=== PATIENT | female | born 1970 | race Caucasian/White ===

== ENCOUNTER 2025-03-20 14:18 | Inpatient (IN) | payer MEDICAID ==
[~2025-03-20] VITALS: Ht 152.4 cm; Wt 49.1 kg
[2025-03-20] MEDS ORDERED: magnesium hydroxide 30ml (MOM) UD suspension PO PRN (17:05)
[2025-03-20] MEDS ORDERED: glucagon, human recombinant 1mg kit SUBCUT PRN (17:05)
[2025-03-20] MEDS ORDERED: dextrose 50%-water 50ml dispensing syringe IV PRN ×2 (17:05)
[2025-03-20] MEDS ORDERED: morphine 4 MG/ML inj SYRINge IV PRN (17:05)
[2025-03-20] MEDS ORDERED: DEXTROSE 15 GM of carb/4 tabs (each vial/BOTTLE has 4 tablets) PO PRN ×2 (17:05)
[2025-03-20] MEDS: LidoCAINE 2% Topical Jelly 11mL syringe (UROJET) TOP ONE (17:30)
--- NOTE | 2025-03-20 17:43 | HISTORY AND PHYSICAL ---
History of Present Illness History of present illness 54-year-old female who was admitted to [facility] on the 19 March 2025 where she was seen for fatigue and the patient was diagnosed with a urinary tract infection. She was seen initially by an outlying physician who prescribed antibiotics but she could not go to the pharmacy to pick a prescription because of transportation issues. The patient was notable for hypotension and tachycardia at [facility]. She was also diagnosed with a urinary tract infection and was initially treated with ceftriaxone that was changed to meropenem today after consulting with Dr. Stephan nettles. She received about 5 L of crystalloid for fluid resuscitation and prior to transferred to [facility], she received boluses of albumin. New line the patient arrived here with a normal blood pressure i.e. 139/83 and the normal blood pressure has sustained itself. She was on lethargic upon arrival because he had received Versed and fentanyl prior to transfer. When I saw with the patient, she was complaining of thirst. He had no compl aints of shortness of breath, chest pain, chest heaviness, cough, phlegm, wheezing, nausea vomiting, abdominal pain, increased urinary frequency no dysuria. The patient has a history of neurogenic bladder and she usually performs self catheterization at home. Expected to stay > 48 hours Yes Reason for Visit: Transferred from [facility] for septic shock and hyperglycemia Chief complaint Septic shock secondary to UTI Source: Patient, Family, Medical Records Past Medical History Past medical history Diabetes mellitus, amphetamine use, CHF, chronic pain syndrome and on [place] at home. Past Surgical History Surgical history Reports right ankle surgery but does not recall why and also does not recall where she had two right hip surgeries, patient currently mumbling words that are difficult to understand. Past Family History Family history Unknown, patient mumbling words that are difficult to understand. Past Social History Smoke: 1 pack per day ALCOHOL: none Drugs: Marijuana (Methamphetamines), Other Lives: with Family () Review of Systems Review of Systems Review of Systems As in history of present illness and past medical history. Patient unable to give a review of systems given the fact that she is just mumbling words. Exam Physical exam HEENT examination: N/C/AT, PERRLA, EOMI, sclerae edema, edentulous Neck: Supple with no jugular venous distention and lymphadenopathy. Chest: Symmetric expansion bilaterally Pulmonary: Clear to auscultation bilaterally with no wheezing no rales rhonchi. Cardiac: Sinus rhythm Abdomen: Nondistended, normoactive bowel sounds soft nontender no organomegaly. Extremities: Right groin central line in place, no cyanosis no clubbing no edema. Neurological examination: Grossly nonfocal. Assessment/Plan Plan Sepsis with UTI Septic shock: Head required norepinephrine that was weaned off after successful fluid resuscitation at [facility] Uncontrolled diabetes mellitus Substance abuse with methamphetamines Plan: Continue antibiotics with the meropenem 1 g IV q.8h as per recommendations from Dr. Nettles Consult Dr. Nettles Use high-dose sliding scale a.c. and HS Patient can be on 60 g of carbohydrate diet. Code status: Full code Sedation/analgesia: P.r.n. Tylenol for pain control IVs: Right groin central line and no peripheral IVs Prophylaxis: Protonix and heparin Overall prognosis: Guarded but improved Critical care time in excess of 35 minutes. VTE VTE Risk Score VTE Risk Score Reference Ranges: Score 0-1 = Low Risk (Aggressive mobilization; early ambulation; no VTE prophylaxis required) Score 2: Moderate Risk (Intermittent/Pneumatic Compression Device OR Lovenox/Heparin/Coumadin) Score 3-4: High Risk (Intermittent/Pneumatic Compression Device AND Lovenox/Heparin/Coumadin) Score > or = 5: Highest Risk (Intermittent/Pneumatic Compression Device AND Lovenox/Heparin/Coumadin) ALECIA CUNHA MD Mar 20, 2025 17:43
[2025-03-20 17:57] VITALS: RESP 29
[2025-03-20 19:00] VITALS: BP 142/88; PULSE 109; RESP 16; O2SAT 95
[2025-03-20 20:00] VITALS: BP 167/106; PULSE 115; RESP 19; RESP 20; O2SAT 95
[2025-03-20 20:33] LABS: MEAN PLATELET VOLUME 8.5 FL (7.4-10.4); RED CELL DISTRIBUTION WIDTH 14.3 % (11.5-14.5)
[2025-03-20 21:00] VITALS: BP 147/93; PULSE 108; RESP 25; O2SAT 97
[2025-03-20 21:09] LABS: CREATININE 1.42 MG/DL (0.40-0.90); PHOSPHORUS 2.6 MG/DL (2.3-4.5); TOTAL CARBON DIOXIDE 20.4 MMOL/L (24-32); eCRCL 33 ML/MIN; eGFR 39 ML/MIN
[2025-03-20] MEDS: INSULIN LISPRO 100 UNIT/ML INSULN.PEN MULTI-DOSE SQ SCH (21:27)
[2025-03-20 21:54] LABS: LEUKOCYTE ESTERASE ,URINE SMALL (Neg); NITRITES, URINE NEGATIVE (Neg); OCCULT BLOOD,URINE SMALL (Neg)
[2025-03-20 21:59] LABS: UA COLLECTION TYPE FOLEY CATH
[2025-03-20 22:00] VITALS: BP 139/87; PULSE 110; RESP 25; O2SAT 95
[2025-03-20 22:00] LABS: SQUAMOUS EPITHELIAL CELL,UR FEW /LPF (FEW)
[2025-03-20 23:00] VITALS: BP 135/88; PULSE 101; RESP 26; O2SAT 94
[2025-03-20] MEDS: heparin, porcine 5000 units/ml vial SQ SCH (23:41)
[2025-03-20] MEDS: MEROPENEM 1GM/NACL 50ML IVPB 50 ML IV SCH (23:46)
[2025-03-21] VITALS (22 sets, daily range): BP systolic 108–170; BP diastolic 46–102; PULSE 80–109; RESP 11–26; TEMP 99; O2SAT 92–100
[2025-03-21 03:36] LABS: MEAN PLATELET VOLUME 8.9 FL (7.4-10.4); RED CELL DISTRIBUTION WIDTH 14.5 % (11.5-14.5)
[2025-03-21 03:54] LABS: CREATININE 1.36 MG/DL (0.40-0.90); PHOSPHORUS 2.8 MG/DL (2.3-4.5); TOTAL CARBON DIOXIDE 22.3 MMOL/L (24-32); eCRCL 34 ML/MIN; eGFR 41 ML/MIN
[2025-03-21] MEDS ORDERED: pantoprazole 40MG/NS 100ML BAG 100 ML IV SCH (08:00)
[2025-03-21] MEDS ORDERED: LANTUS SQ (10:48)
[2025-03-21] MEDS ORDERED: DAPA5TAB PO (10:48)
[2025-03-21] MEDS ORDERED: BUDE10.2 PO (10:48)
[2025-03-21] MEDS ORDERED: INSU100C4 SQ (10:48)
[2025-03-21] MEDS ORDERED: TIRZ2.5P SQ (10:48)
[2025-03-21] MEDS ORDERED: GABA100C PO (10:48)
[2025-03-21] MEDS ORDERED: potassium Cl 20 mEq SR tablet PO PRN (11:00)
[2025-03-21] MEDS ORDERED: potassium Cl 40MEQ/1/2NS 520ml 520 ML IV PRN (11:00)
[2025-03-21] MEDS ORDERED: magnesium sulf-water 2g/50mL 50 ML IV PRN (11:00)
[2025-03-21] MEDS ORDERED: magnesium Cl slow-release 64mg tablet PO PRN (11:00)
[2025-03-21] MEDS ORDERED: magnesium sulf-water 4G/100mL 100 ML IV PRN (11:00)
[2025-03-21] MEDS: potassium Cl 20 mEq SR tablet PO PRN (12:27)
[2025-03-21] MEDS: ondansetron/PF 4mg/2ml inj IV PRN (12:31)
[2025-03-21] MEDS: INSULIN LISPRO 100 UNIT/ML INSULN.PEN MULTI-DOSE SQ SCH (14:04)
--- NOTE | 2025-03-21 16:21 | PROGRESS NOTE- Residence ---
Progress Note - Resident Providers to CC Resident Creating Document: CIRILO CUENCA CC: ALECIA CUNHA MD ~ Antibiotic Timeout Antibiotic Ordered?: Yes Subjective Patient was seen and examined at bedside today. She reports to be feeling better compared to yesterday. She reports that she was placed a Guadalupe catheter weeks ago, she is unsure on duration. Per nursing staff, patient apparently has history of neurogenic bladder and she self caths at home. She has also been having watery diarrhea Objective Vital Signs Date Time Temp Pulse Resp B/P (MAP) Pulse Ox O2 Delivery O2 Flow Rate FiO2 03/21/25 11:00 103 18 149/93 (111) 99 Nasal Cannula 1.0 03/21/25 09:00 100.0 Result Diagram: 03/21/25 0240 03/21/25 0240 General: awake, alert oriented to place, time, and person HEENT: No pallor present, no icterus, moist mucous membranes Neck: No masses and tenderness Resp: Unlabored. Lungs clear to auscultation bilaterally. Chest: Normal expansion Cardiovascular: Regular Rate and rhythm, normal S1 and S2 without murmur, rub or gallop Abdomen: Soft and nontender, no organomegaly, no guarding and rigidity, bowel sounds present Neuro: No focal weakness in the upper and lower limb muscles, power of the muscles 5/5 bilateral upper and lower extremities, normal reflexes bilaterally. Cranial nerves intact Extremities: No cyanosis,clubbing or edema Skin: Warm and Dry. No lesions Psych: Normal affect and mood. Cooperative with the care Plan Plan CAUTI Septic shock 2/2 above, resolving Required norepinephrine that was weaned off after successful fluid resuscitation at [facility] Blood pressure is now stable Preliminary cultures are negative WBC is 20 today, 21 yesterday Continue antibiotics with the meropenem 1g IV q.8h as per recommendations from Dr. Bates, day 2 Watery diarrhea Pending C diff serology Possibly chronic per patient Uncontrolled diabetes mellitus A1C >12 Was recently started on Mounjaro Uses insulin as well Will start Lispro 3U, Lantus 10U, supplemental Carb control diet BG goal: 140-180 Substance abuse with methamphetamines Substance abuse navigator consult HTN Start Lisinopril 20mg daily Code status: Full code Sedation/analgesia: P.r.n. Tylenol for pain control IVs: Right groin central line and no peripheral IVs Prophylaxis: Protonix and heparin Prognosis: Guarded Disposition: Okay to transfer to floors Cirilo Andre MD Internal Medicine Resident PGY-2 Date of Service: Mar 21, 2025 Billing Provider: ALECIA CUNHA MD, LEONARDO LUIS Mar 21, 2025 16:21
[2025-03-21 18:01] LABS: C DIFFICILE TOXINS A&B NEGATIVE (Neg)
[2025-03-21 18:02] LABS: C DIFF ANTIGEN NEGATIVE (NEGATIVE); C DIFF SPECIMEN=DIARRHEA? ACCEPTABLE
[2025-03-21] MEDS: MEROPENEM 1GM/NACL 50ML IVPB 50 ML IV SCH (19:11)
--- NOTE | 2025-03-21 20:35 | CONSULTATION REPORT - RESIDENT ---
Consult Providers to CC Resident Creating Document: LISET PALMER RES History of Present Illness Reason for Admit\Complaint: UTI/shock History of Present Illness This is a 54-year-old female with past medical history of diabetes, amphetamine use was admitted [facility] where she was diagnosed with a UTI. She denies chest pain shortness of breaths nausea vomiting. Patient is a poor historian, chief G-tube remember anything much but she was sick and had dizzines and lightheadness Patient was mumbling and it was very difficult to obtain history from the patient. She denies chest pain shortness of breaths nausea vomiting and reports diarrhea 5-6 episodes in a day watery. Below is the history which I got from ICU notes The patient was notable for hypotension and tachycardia at [facility]. She was also diagnosed with a urinary tract infection and was initially treated with ceftriaxone that was changed to meropenem today after consulting with Dr. Stephan nettles. She received about 5 L of crystalloid for fluid resuscitation and prior to transferred to [facility], she received boluses of albumin. New line the patient arrived here with a normal blood pressure i.e. 139/83 and the normal blood pressure has sustained itself. She was on lethargic upon arrival because he had received Versed and fentanyl prior to transfer. When I saw with the patient, she was complaining of thirst. He had no complaints of shortness of breath, chest pain, chest heaviness, cough, phlegm, wheezing, nausea vomiting, abdominal pain, increased urinary frequency no dysuria. The patient has a history of neurogenic bladder and she usually performs self catheterization at home. Allergies: Coded Allergies: Penicillins (Unverified Allergy, Unknown, 03/20/25) aspirin (Unverified Allergy, Unknown, 03/20/25) Home Medications Home Medications Active Reported Lantus* (Insulin Glargine) 100 Unit/1 Ml Vial 20 Units SQ HS pt ran out med and has not using for a while Novolog (Insulin Aspart) 100 Unit/Ml Cartridge 1 Unit SQ TIDWM PRN Symbicort 160-4.5 Mcg Inhaler (Budesonide/Formoterol Fumarate) 160 Mcg-4.5 Mcg/Actuation Hfa.aer.ad 2 Puffs PO BID Neurontin (Gabapentin) 100 Mg Capsule 1 Cap PO DAILY Mounjaro (Tirzepatide) 2.5 Mg/0.5 Ml Pen.injctr 2.5 Mg SQ MONDAY Farxiga (Dapagliflozin Propanediol) 5 Mg Tablet 1 Tab PO DAILY new med, pt states she has not started yet Past Medical History Past Medical History Diabetes mellitus, amphetamine use, CHF, chronic pain syndrome and on [place] at home. Past Surgical History Surgical History Comment Reports right ankle surgery but does not recall why and also does not recall where she had two right hip surgeries, patient currently mumbling words that are difficult to understand Past Social History Social History Comment Could not be obtained as patient was mumbling she just told smoked ciggrates ROS ROS all reviewed and negative except for findings mentioned in HPI Exam Vitals: Vital Signs Date Time Temp Pulse Resp B/P (MAP) Pulse Ox O2 Delivery O2 Flow Rate FiO2 03/21/25 20:00 98.6 96 26 137/93 (108) 97 Room Air 03/21/25 19:00 1.0 General: HEENT examination: N/C/AT, PERRLA, EOMI, sclerae edema, edentulous Neck: Supple with no jugular venous distention and lymphadenopathy. Chest: Symmetric expansion bilaterally Pulmonary: Clear to auscultation bilaterally with no wheezing no rales rhonchi. Cardiac: Sinus rhythm Abdomen: Nondistended, normoactive bowel sounds soft nontender no organomegaly. Extremities: Right groin central line in place, no cyanosis no clubbing no edema. Neurological examination: Grossly nonfocal. Diagnostic Data Last Recorded Lab Results: 03/21/25 0240 03/21/25 0240 Additional Plan Plan CAUTI Septic shock 2/2 above, resolving Required norepinephrine that was weaned off after successful fluid resuscitation at [facility] Blood pressure is now stable Preliminary cultures are negative WBC is 20 today, 21 yesterday Continue antibiotics with the meropenem 1g IV q.8h as per recommendations from Dr. Nettles, day 2 Watery diarrhea Pending C diff serology Possibly chronic per patient Uncontrolled diabetes mellitus A1C >12 Was recently started on Mounjaro Uses insulin as well Will start Lispro 3U, Lantus 10U, supplemental Carb control diet BG goal: 140-180 Substance abuse with methamphetamines Substance abuse navigator consult HTN Continue Lisinopril 20mg daily Code status: Full code Sedation/analgesia: P.r.n. Tylenol for pain control IVs: Right groin central line and no peripheral IVs Prophylaxis: Protonix and heparin Prognosis: Guarded Disposition: Patient is transfering to floors from ICU , will continue Date of Service: Mar 21, 2025 Billing Provider: BENEDICT TREJO MD, SANJAY, RES Mar 21, 2025 20:35
[2025-03-21] MEDS: insulin glargine (Lantus) pen - multi-dose SQ SCH (22:37)
[2025-03-21] MEDS: insulin glargine (Lantus) pen - multi-dose SQ ONE (23:03)
[2025-03-22 05:00] VITALS: BP 132/78; PULSE 101; RESP 18; TEMP 99.5; O2SAT 93
[2025-03-22 05:57] LABS: MEAN PLATELET VOLUME 8.9 FL (7.4-10.4); RED CELL DISTRIBUTION WIDTH 14.7 % (11.5-14.5)
[2025-03-22 06:03] LABS: CREATININE 1.17 MG/DL (0.40-0.90); PHOSPHORUS 1.4 MG/DL (2.3-4.5); TOTAL CARBON DIOXIDE 22.4 MMOL/L (24-32); eCRCL 40 ML/MIN; eGFR 48 ML/MIN
[2025-03-22 06:32] VITALS: RESP 18; O2SAT 93
[2025-03-22 06:48] LABS: BANDS% (MANUAL) 3.0 % (0-10); EOSINOPHILS % (MANUAL) 3.0 % (0-6); LYMPHOCYTES % (MANUAL) 15.0 % (21-51); METAMYLEOCYTES% (MANUAL) 1.0 % (0-0); MONOCYTES % (MANUAL) 2.0 % (2-12); NEUTROPHILS % (MANUAL) 76.0 % (42-75); PLATELET ESTIMATE NORMAL
[2025-03-22] MEDS: K and/or MAG REPLACEMENT MC SCH (07:51)
[2025-03-22 10:00] VITALS: BP 134/79; PULSE 93; RESP 20; TEMP 100.2; O2SAT 95
[2025-03-22] MEDS: loperamide 2mg capsule PO ONE (14:01)
[2025-03-22] MEDS: normal saline 1000ml 1,000 ML IV SCH ×2 (15:50→21:05)
--- NOTE | 2025-03-22 16:15 | RADIOLOGY REPORT ---
CHEST RADIOGRAPH Indication: monitor changes Technique: DI CHEST,SINGLE VIEW Comparison: None FINDINGS: 1 The cardiac silhouette is unremarkable. The lungs demonstrate right hilar opacification. The pulmonary vasculature is unremarkable. There is no pleural effusion. There is no pneumothorax. IMPRESSION: Right whole hilar airspace opacification. Follow-up to resolution to exclude underlying hilar lesion/mass.
[2025-03-22] MEDS: VANCOmycin 1250MG/NS 250ml Bag 250 ML IV ONE (17:06)
[2025-03-22 18:00] VITALS: BP 133/82; PULSE 85; RESP 20; TEMP 97.2; O2SAT 96
[2025-03-22] MEDS: morphine 4 MG/ML inj SYRINge IV PRN (18:44)
[2025-03-22 20:00] VITALS: RESP 20; O2SAT 96
--- NOTE | 2025-03-22 20:07 | PROGRESS NOTE- Residence ---
Progress Note - Resident Providers to CC Resident Creating Document: LISET PALMER RES CC: BENEDICT TREJO MD ~ Antibiotic Timeout Antibiotic Ordered?: Yes Subjective Patient was seen and examined at bedside she said, that she is feeling very better reports that her diarrheal episodes are improving. Denies abdominal pain, chest pain or difficulty in breathing. She also reports that she has neuropathy in feets No nausea vomiting Objective Vital Signs Date Time Temp Pulse Resp B/P (MAP) Pulse Ox O2 Delivery O2 Flow Rate FiO2 03/22/25 10:00 100.2 93 20 134/79 (97) 95 Room Air 03/21/25 20:00 1.0 Result Diagram: 03/22/2542203/22/25422 General: awake, alert oriented to place, time, and person HEENT: No pallor present, no icterus, moist mucous membranes Neck: No masses and tenderness Resp: Unlabored. Lungs clear to auscultation bilaterally. Chest: Normal expansion Cardiovascular: Regular Rate and rhythm, normal S1 and S2 without murmur, rub or gallop Abdomen: Soft and nontender, no organomegaly, no guarding and rigidity, bowel sounds present Neuro: No focal weakness in the upper and lower limb muscles, power of the muscles 5/5 bilateral upper and lower extremities, normal reflexes bilaterally.Cranial nerves intact Extremities: No cyanosis,clubbing or edema Skin: Warm and Dry. No lesions Psych: Normal affect and mood. Cooperative with the care Plan Plan This is a 54-year-old female with known history of diabetes mellitus admitted for septic shock, UTI management and treatment. CAUTI Septic shock 2/2 above, resolving Required norepinephrine that was weaned off after successful fluid resuscitation at [facility] Blood pressure is now stable Preliminary blood culture positive for Gram-positive coci, repeated blood cultures today Awaiting repeat lactic acid WBC is trending downward Continue antibiotics with the meropenem 1g IV q.8h as per recommendations from Dr. Bates, day 2 Watery diarrhea C diff negative In view of diarrhea started patient on loperamide. In view of the started patient on NS 50 mL/hour Diabetes Mellitus A1C >12 Blood glucose glucometer 180 Was recently started on Mounjaro Continue Lispro 3U, Lantus 10U, supplemental Carb control diet BG goal: 140-180 Peripheral Neuropathy Secondary to Diabetes Mellitus Continue gabapentin 100 mg Substance abuse with methamphetamines Substance abuse navigator consult HTN Continue lisinopril 20 mg Code status: Full code Sedation/analgesia: P.r.n. Tylenol for pain control GI prophylaxis: Pantoprazole IV DVT prophylaxis heparin Disposition: Send blood culture today patient will be possibly discharged tomorrow, removed tosin Palmer PGY1 IM Date of Service: Mar 22, 2025 Billing Provider: BENEDICT TREJO MD, SANJAY, RES Mar 22, 2025 20:07
[2025-03-22] MEDS: loperamide 2mg capsule PO PRN (20:54)
[2025-03-22] MEDS ORDERED: sodium phos 15mmol/D5 255mL 255 ML IV PRN (21:30)
[2025-03-22] MEDS ORDERED: sodium phosphate inj. 30 MMOL in dextrose 5%-water 250 ML IV PRN (21:30)
[2025-03-22 22:00] VITALS: BP 105/70; PULSE 83; RESP 16; TEMP 99.2; O2SAT 97
[2025-03-23 06:19] LABS: MEAN PLATELET VOLUME 8.1 FL (7.4-10.4); RED CELL DISTRIBUTION WIDTH 14.7 % (11.5-14.5)
[2025-03-23 06:38] LABS: CREATININE 0.95 MG/DL (0.40-0.90); PHOSPHORUS 1.8 MG/DL (2.3-4.5); TOTAL CARBON DIOXIDE 21.6 MMOL/L (24-32); eCRCL 49 ML/MIN; eGFR 62 ML/MIN
[2025-03-23 06:59] VITALS: BP 109/71; PULSE 85; RESP 20; TEMP 98; O2SAT 95
[2025-03-23] MEDS ORDERED: pantoprazole 40mg Tablet.DR PO SCH (07:30)
[2025-03-23 07:53] LABS: BANDS% (MANUAL) 5.0 % (0-10); EOSINOPHILS % (MANUAL) 3.0 % (0-6); LYMPHOCYTES % (MANUAL) 21.0 % (21-51); METAMYLEOCYTES% (MANUAL) 2.0 % (0-0); MONOCYTES % (MANUAL) 5.0 % (2-12); MYELOCYTES % (MANUAL) 1.0 % (0-0); NEUTROPHILS % (MANUAL) 63.0 % (42-75)
[2025-03-23 07:54] LABS: PLATELET ESTIMATE NORMAL
[2025-03-23 08:00] VITALS: RESP 18
[2025-03-23] MEDS: vancomycin/NS 1 GM ADD-VANTAGE 250 ML X 1 DOSE IV SCH (16:30)
[2025-03-23] MEDS: LidoCAINE 2% Topical Jelly 11mL syringe (UROJET) TOP ONE (17:15)
[2025-03-23 18:00] VITALS: BP 105/77; PULSE 80; RESP 20; TEMP 97.9; O2SAT 94
--- NOTE | 2025-03-23 18:36 | PROGRESS NOTE- Residence ---
Progress Note - Resident Providers to CC Resident Creating Document: LISET AWAN RES CC: BENEDICT TREJO MD ~ Antibiotic Timeout Antibiotic Ordered?: Yes Subjective Patient was seen and examined at bedside she said, that she is feeling very better reports that her diarrheal episodes are improving. Denies abdominal pain, chest pain or difficulty in breathing. Reports She is not able to pass urine properly Objective Vital Signs Date Time Temp Pulse Resp B/P (MAP) Pulse Ox O2 Delivery O2 Flow Rate FiO2 03/23/25 08:00 18 Room Air 03/23/25 08:00 82 03/23/25 06:59 98.0 109/71 (84) 95 03/21/25 20:00 1.0 Result Diagram: 03/23/25 0558 03/23/25 0558 General: awake, alert oriented to place, time, and person HEENT: No pallor present, no icterus, moist mucous membranes Neck: No masses and tenderness Resp: Unlabored. Lungs clear to auscultation bilaterally. Chest: Normal expansion Cardiovascular: Regular Rate and rhythm, normal S1 and S2 without murmur, rub or gallop Abdomen: Soft and nontender, no organomegaly, no guarding and rigidity, bowel sounds present Neuro: No focal weakness in the upper and lower limb muscles, power of the muscles 5/5 bilateral upper and lower extremities, normal reflexes bilaterally.Cranial nerves intact Extremities: No cyanosis,clubbing or edema Skin: Warm and Dry. No lesions Psych: Normal affect and mood. Cooperative with the care Plan Plan This is a 54-year-old female with known history of diabetes mellitus admitted for septic shock, UTI management and treatment. CAUTI Septic shock 2/2 above, resolving Required norepinephrine that was weaned off after successful fluid resuscitation at [facility] Blood pressure is maintained Preliminary blood culture positive for Gram-positive coci, repeated blood cultures today Follow blood culture positive for Enterococcus faecalis WBC is trending downward Started patient on vancomycin day one Continue antibiotics with the meropenem 1g IV q.8h as per recommendations from Dr. Bates, day 3 Watery diarrhea C diff negative In view of diarrhea started patient on loperamide. In view of the started patient on NS 75 mL/hour Acute Urinary Retention Recently foleys dced,Bladder scan showed patient was retaining urine, patient again underwent Guadalupe's Patient need to follow up with urologist outpatient Diabetes Mellitus A1C >12 Blood glucose glucometer 180 Was recently started on Mounjaro Continue Lispro 3U, Lantus 10U, supplemental Carb control diet BG goal: 140-180 Peripheral Neuropathy Secondary to Diabetes Mellitus Continue gabapentin 100 mg Substance abuse with methamphetamines Substance abuse navigator consult HTN Continue lisinopril 20 mg Code status: Full code Sedation/analgesia: P.r.n. Tylenol for pain control GI prophylaxis: Pantoprazole IV DVT prophylaxis heparin Disposition: Discontinued Guadalupe's yesterday patient was retaining urine again, patient underwent straight cath today. Patient need to follow with Urologist outpatient. Liset Awan PGY1 IM Date of Service: Mar 23, 2025 Billing Provider: BENEDICT TREJO MD, SANJAY, RES Mar 23, 2025 18:36
[2025-03-23 20:00] VITALS: RESP 18; O2SAT 96
[2025-03-23 22:00] VITALS: BP 130/68; PULSE 83; RESP 20; TEMP 99.3; O2SAT 96
[2025-03-24 05:46] LABS: MEAN PLATELET VOLUME 8.2 FL (7.4-10.4); RED CELL DISTRIBUTION WIDTH 14.6 % (11.5-14.5)
[2025-03-24 06:00] LABS: CREATININE 1.00 MG/DL (0.40-0.90); PHOSPHORUS 2.2 MG/DL (2.3-4.5); TOTAL CARBON DIOXIDE 24.7 MMOL/L (24-32); eCRCL 47 ML/MIN; eGFR 58 ML/MIN
[2025-03-24 06:35] VITALS: BP 124/81; PULSE 86; RESP 18; TEMP 98.9; O2SAT 96
[2025-03-24 07:45] LABS: BANDS% (MANUAL) 4.0 % (0-10); EOSINOPHILS % (MANUAL) 5.0 % (0-6); LYMPHOCYTES % (MANUAL) 12.0 % (21-51); METAMYLEOCYTES% (MANUAL) 2.0 % (0-0); MONOCYTES % (MANUAL) 6.0 % (2-12); NEUTROPHILS % (MANUAL) 71.0 % (42-75); PLATELET ESTIMATE INCREASED
[2025-03-24 07:46] LABS: GIANT PLATELET FEW; LARGE PLATELETS FEW
[2025-03-24 09:17] VITALS: RESP 18
[2025-03-24] MEDS: LidoCAINE 2% Topical Jelly 11mL syringe (UROJET) TOP ONE (09:50)
[2025-03-24 10:01] VITALS: BP 118/73; PULSE 78; RESP 18; TEMP 98.2; O2SAT 98
[2025-03-24 10:16] VITALS: RESP 16
--- NOTE | 2025-03-24 20:44 | DISCHARGE SUMMARY-Residence ---
Discharge Summary Providers to CC Resident Creating Document: LEANDRA HORTON, RES ~ Discharge Summary Admission Diagnosis: UTI with sepsis, Septic shock Hospital Course DATE OF ADMISSION: DATE OF DISCHARGE: Discharge Diagnosis\Comment: CAUTI Septic shock Watery diarrhea Uncontrolled diabetes mellitus Substance abuse with methamphetamines HTN Operations\Procedures: None Consultants: None Complications: Patient left against medical advice Condition on DC: Unstable (Patient left against medical advice) Discharge Summary: History 54-year-old female who was admitted to [facility] on the 19 March 2025 where she was seen for fatigue and the patient was diagnosed with a urinary tract infection. [facility] but she could not go to the pharmacy to pick a prescription because of transportation issues. The patient was notable for hypotension and tachycardia at [facility]. She was also diagnosed with a urinary tract infection and was initially treated with ceftriaxone that was changed to meropenem today after consulting with Dr. Stephan nettles. She received about 5 L of crystalloid for fluid resuscitation and prior to transferred to [facility], she received boluses of albumin. New line the patient arrived here with a normal blood pressure i.e. 139/83 and the normal blood pressure has sustained itself. She was on lethargic upon arrival because he had received Versed and fentanyl prior to transfer. When I saw with the patient, she was complaining of thirst. He had no complaints of shortness of breath, chest pain, chest heaviness, cough, phlegm, wheezing, nausea vomiting, abdominal pain, increased urinary frequency no dysuria. The patient has a history of neurogenic bladder and she usually performs self catheterization at home. Hospital course: 54-year-old female who was admitted to [facility] on the 19 March 2025 where she was seen for fatigue and the patient was diagnosed with a urinary tract infection Patient was started on antibiotic meropenem as per Dr. Nettles Infectious Disease recommendation Started on high-dose sliding scale-hyperglycemia On day 2-continued antibiotic, preliminary blood cultures are negative, pending serology for C diff as patient has watery diarrhea Substance abuse navigator consulted and 4 hypertension lisinopril 20 mg daily started On day 3 He continued antibiotics for a day 2, C diff serology came negative on day 3 and patient was started on loperamide and 50 mL/hour normal saline And continued all home medication On day 4 Patient still on IV antibiotics- day 3, had patient is started on vancomycin Continued loperamide for watery diarrhea and increase normal saline to 75 mL/hour And recommended outpatient urologist follow up for acute urinary retention On day 5 today Patient left hospital despite explaining about risk and benefits of not undergoing treatment Vital Signs Date Time Temp Pulse Resp B/P (MAP) Pulse Ox O2 Delivery O2 Flow Rate FiO2 03/24/25 10:16 16 03/24/25 10:01 98.2 78 118/73 (88) 98 Room Air 03/21/25 20:00 1.0 Laboratory Tests Test 03/22/25 21:03 03/23/25 05:58 03/23/25 11:58 03/23/25 17:14 Glucometer 143 mg/dl 92 mg/dl 159 mg/dl White Blood Count 13.8 X10'3 Red Blood Count 3.68 X10'6 Hemoglobin 10.2 g/dl Hematocrit 31.2 % Mean Corpuscular Volume 84.8 FL Mean Corpuscular Hemoglobin 27.7 PG Mean Corpuscular Hemoglobin Concent 32.7 g/dL Red Cell Distribution Width 14.7 % Platelet Count 415 X10'3 Mean Platelet Volume 8.1 FL Neutrophils (%) (Auto) 73.0 % Lymphocytes (%) (Auto) 18.6 % Monocytes (%) (Auto) 5.7 % Eosinophils (%) (Auto) 2.0 % Basophils (%) (Auto) 0.7 % Neutrophils # (Auto) 10.1 X10'3 Lymphocytes # (Auto) 2.6 X10'3 Monocytes # (Auto) 0.8 X10'3 Eosinophils # (Auto) 0.3 X10'3 Basophils # (Auto) 0.1 X10'3 CBC Comment Differential Total Cells Counted 100 Neutrophils % (Manual) 63.0 % Band Neutrophils % 5.0 % Lymphocytes % (Manual) 21.0 % Monocytes % (Manual) 5.0 % Eosinophils % (Manual) 3.0 % Metamyelocytes % 2.0 % Myelocytes % 1.0 % Toxic Granulation 1+ Platelet Estimate Normal Red Blood Cell Morphology Perf Polychromasia 1+ Hypochromasia 1+ Basophilic Stippling Sodium Level 135 MMOL/L Potassium Level 4.0 MMOL/L Chloride Level 104 MMOL/L Carbon Dioxide Level 21.6 MMOL/L Anion Gap 9 Blood Urea Nitrogen 19 MG/DL Creatinine 0.95 MG/DL Estimated GFR/1.73 m2 62 ML/MIN BUN/Creatinine Ratio 20.0 Glucose Level 206 MG/DL Calcium Level 8.4 MG/DL Phosphorus Level 1.8 MG/DL Magnesium Level 1.6 MG/DL Total Bilirubin 0.2 MG/DL Aspartate Amino Transf (AST/SGOT) 14 U/L Alanine Aminotransferase (ALT/SGPT) 19 U/L Alkaline Phosphatase 282 IU/L Total Protein 6.9 G/DL Albumin 2.1 G/DL Globulin 4.8 G/DL Albumin/Globulin Ratio 0.4 Procalcitonin 0.38 NG/ML Chemistry Comments Test 03/23/25 20:52 03/24/25 04:47 03/24/25 07:06 Glucometer 169 mg/dl 127 mg/dl White Blood Count 16.2 X10'3 Red Blood Count 3.45 X10'6 Hemoglobin 9.6 g/dl Hematocrit 29.2 % Mean Corpuscular Volume 84.4 FL Mean Corpuscular Hemoglobin 27.9 PG Mean Corpuscular Hemoglobin Concent 33.0 g/dL Red Cell Distribution Width 14.6 % Platelet Count 496 X10'3 Mean Platelet Volume 8.2 FL Neutrophils (%) (Auto) 72.7 % Lymphocytes (%) (Auto) 17.9 % Monocytes (%) (Auto) 5.5 % Eosinophils (%) (Auto) 2.6 % Basophils (%) (Auto) 1.3 % Neutrophils # (Auto) 11.8 X10'3 Lymphocytes # (Auto) 2.9 X10'3 Monocytes # (Auto) 0.9 X10'3 Eosinophils # (Auto) 0.4 X10'3 Basophils # (Auto) 0.2 X10'3 CBC Comment Differential Total Cells Counted 100 Neutrophils % (Manual) 71.0 % Band Neutrophils % 4.0 % Lymphocytes % (Manual) 12.0 % Monocytes % (Manual) 6.0 % Eosinophils % (Manual) 5.0 % Metamyelocytes % 2.0 % Platelet Estimate Increased Large Platelets Few Giant Platelets Few Red Blood Cell Morphology Normal Basophilic Stippling Sodium Level 137 MMOL/L Potassium Level 4.0 MMOL/L Chloride Level 104 MMOL/L Carbon Dioxide Level 24.7 MMOL/L Anion Gap 8 Blood Urea Nitrogen 21 MG/DL Creatinine 1.00 MG/DL Estimated GFR/1.73 m2 58 ML/MIN BUN/Creatinine Ratio 21.0 Glucose Level 139 MG/DL Calcium Level 8.5 MG/DL Phosphorus Level 2.2 MG/DL Magnesium Level 1.5 MG/DL Total Bilirubin 0.2 MG/DL Aspartate Amino Transf (AST/SGOT) 15 U/L Alanine Aminotransferase (ALT/SGPT) 16 U/L Alkaline Phosphatase 261 IU/L Total Protein 6.7 G/DL Albumin 2.1 G/DL Globulin 4.6 G/DL Albumin/Globulin Ratio 0.5 Procalcitonin 0.20 NG/ML Chemistry Comments Physical exam General: awake, alert oriented to place, time, and person HEENT: No pallor present, no icterus, moist mucous membranes Neck: No masses and tenderness Resp: Unlabored. Lungs clear to auscultation bilaterally. Chest: Normal expansion Cardiovascular: Regular Rate and rhythm, normal S1 and S2 without murmur, rub or gallop Abdomen: Soft and nontender, no organomegaly, no guarding and rigidity, bowel sounds present Neuro: No focal weakness in the upper and lower limb muscles, power of the muscles 5/5 bilateral upper and lower extremities, normal reflexes bilaterally.Cranial nerves intact Extremities: No cyanosis,clubbing or edema Skin: Warm and Dry. No lesions Psych: Normal affect and mood. Cooperative with the care Discharge instruction Patient left against medical advice despite explaining the risk of not undergoing treatment in hospital *Problems/Diagnosis: (1) Sepsis Status: Acute (2) Diarrhea Status: Acute (3) Urinary retention Status: Acute (4) Diabetes Status: Chronic Total Time Spent on D/C: > 30 Minutes Date of Service: Mar 24, 2025 Billing Provider: BENEDICT TREJO MD, SATISH, RES Mar 24, 2025 20:42
[2025-03-25] MEDS ORDERED: VANCOMYCIN LEVEL IV ONE (15:30)
== END 2025-03-24 11:44 | disposition left against medical advice (07) | DRG 466 ==
LOC: CICU 2S 16:54 → SUR 3N 03-21 20:03
PROVIDERS: ADMIT Internal Medicine Critical Care Medicine; ATTEND Internal Medicine Critical Care Medicine
DX: T83.511A Infection and inflammatory reaction due to indwelling urethral catheter, initial encounter (principal); R65.21 Severe sepsis with septic shock; A41.9 Sepsis, unspecified organism; I11.0 Hypertensive heart disease with heart failure; I50.9 Heart failure, unspecified; N39.0 Urinary tract infection, site not specified; E11.65 Type 2 diabetes mellitus with hyperglycemia; F15.10 Other stimulant abuse, uncomplicated; E11.42 Type 2 diabetes mellitus with diabetic polyneuropathy; Y84.6 Urinary catheterization as the cause of abnormal reaction of the patient, or of later complication, without mention of misadventure at the time of the procedure; F17.210 Nicotine dependence, cigarettes, uncomplicated; G89.4 Chronic pain syndrome; Y92.89 Other specified places as the place of occurrence of the external cause; Z53.29 Procedure and treatment not carried out because of patient's decision for other reasons
CPT/HCPCS: 36415; 71045; 80053; 81001; 82948; 83036; 83605; 83735; 84100; 84145; 85007; 85025; 87040; 87045; 87046; 87077; 87081; 87088; 87186; 87324; 87449; 89055; 97110; 97116; 97161; 97530; A4314; A5200; A6250; A6258; A6449; C1758; G0378; J1644; J1815; J2185; J2270; J2405; J2470; J3373; J3374; J7030; J7040

== ENCOUNTER 2025-05-09 10:31 | Inpatient (IN) | payer MEDICAID ==
[~2025-05-09] VITALS: Ht 152.4 cm; Wt 52.0 kg
[~2025-05-09 10:31] MED LIST: BUDE10.2 PO; DAPA5TAB PO; GABA100C PO; INSU100C4 SQ; LANTUS SQ; TIRZ2.5P SQ
--- NOTE | 2025-05-09 11:12 | ELECTROCARDIOGRAPH REPORT ---
[facility] Test Date: 2025-05-09 Test Time: 11:09:58 Pat Name: IZAIAH YBARRA Department: [facility]- Patient ID: [id number] Room: [place] [address] Gender: F Vegetable Tier: : 1970 Requested By: DOT ROSALES Order Number: [id number] Reading MD: Dr. YOKASTA Laurent Measurements Intervals [place] Rate: 91 P: 36 RI: 113 QRS: 19 QRSD: 87 T: 55 QT: 354 QTc: 436 Interpretive Statements Sinus rhythm Borderline short RI interval Electronically Signed On 05-11-2025 11:46:[address] YOKASTA Laurent Please click the below link to view image of tracing.
--- NOTE | 2025-05-09 11:12 | Physician Documentation ---
History of Present Illness ~ Chief Complaint: Vomiting Stated Complaint: SEE CHIEF Time Seen by MD: 10:53 OK to notify your PCP?: Yes Primary Medical Doctor: [facility] Source: patient Mode of Arrival: EMS Exam Limitations: no limitations HPI This is a 54-year-old female who was transferred via EMS from [facility] for sepsis and pyelonephritis. The patient has a extensive workup and presented with the ER earlier this morning after having episodes of vomiting diarrhea yesterday. [place] [address] with left shift and bandemia.. Urinary catheter placed for urinary retention. Urinalysis was positive for UTI with the WBCs, leukocyte esterase and nitrites. CT scan showed mild left hydroureteronephrosis with the perinephric stranding consider pyelonephritis versus urinary tract infection or passed the stone. The patient's blood work also showed increased renal functions with the patient states she has not no history of renal disease. Blood glucose was 200 and there was glucose in the urine though the patient states she has not no history of diabetes. The patient is given Rocephin 2 g IV as well as appropriate IV resuscitative fluid hydration, pain management and antiemetics. Currently she states she feels much better. Medication Reconciliation Allergies: Coded Allergies: Penicillins (Unverified Allergy, Unknown, 03/20/25) aspirin (Unverified Allergy, Unknown, 03/20/25) abreu pepper (Unverified Allergy, Unknown, Rash, 03/22/25) Scheduled Budesonide/Formoterol Fumarate (Symbicort 160-4.5 Mcg Inhaler), 2 PUFFS PO BID, (Reported) Dapagliflozin Propanediol (Farxiga), 1 TAB PO DAILY, (Reported) Gabapentin (Neurontin), 1 CAP PO DAILY, (Reported) Insulin Glargine,Hum.rec.anlog* (Lantus*), 20 UNITS SQ HS, (Reported) Tirzepatide (Mounjaro), 2.5 MG SQ MONDAY, (Reported) Scheduled PRN Insulin Aspart (Novolog), 1 UNIT SQ TIDWM PRN for sliding scale, (Reported) Physical Exam Vital Signs: Temperature: 98.4, Source: Oral, Heart Rate: 95, Respiratory Rate: 14, BP: 104/72, Pulse Oximetry: 98, Weight: 52.000 Pulse Oximetry Reflects: adequate oxygenation General Appearance: alert, WD/WN, ill-appearing Respiratory: lungs clear, normal breath sounds, no respiratory distress Chest: no accessory muscle use Cardiovascular: normal peripheral pulses, regular rate, rhythm, no edema, no gallop, no JVD, no murmur Gastrointestinal: normal palpation, non-tender Back: CVA tenderness (L) Neurologic: oriented x4, drafter refrigeration II-XII nml as tested, memory intact Psychiatric: normal mood/affect Skin Pale and cool Progress Results/Orders Reviewed/noted all lab results: Yes Results/Orders Orders - DOT ROSALES Culture Blood (05/09/25 10:54) Chest,Single View (05/09/25 10:54) Normal Saline 1000ml (0.9% Sodium Chlori (05/09/25 11:05) Cult Urine + [address] (05/09/25 11:27) Page Hospitalist (05/09/25 12:02) Non Formulary (05/12/25 13:30) Vancomycin,Trough (05/12/25 12:30) Vancomycin Inj. (Vancomycin Iv) (05/09/25 13:00) Completed Orders - DOT ROSALES Electrocardiogram (05/09/25 10:54) Cbc/Diff (05/09/25 10:54) MG (05/09/25 10:54) Chest,Single View (05/09/25 10:54) Procalcitonin (05/09/25 10:54) BMP (05/09/25 10:54) Lacticsepsis (05/09/25 10:54) Vancomycin*Pharmacy To Dose* (Vancomycin (05/09/25 11:05) Ua W/Microscopic, Cult If Ind (05/09/25 10:58) Man Diff (05/09/25 11:08) Vancomycin Inj. (Vancomycin Iv) (05/10/25 12:02) Medications Received in ER Medications (Trade) Dose Ordered Sig/Khoi Route PRN Reason Start Time Stop Time Status Last Admin Dose Admin Sodium Chloride 1,000 ml @ 150 mls/hr [id number] ONCE IV 05/09/25 11:05 05/09/25 17:44 05/09/25 11:14 150 MLS/HR Vital Signs 05/09/25 05/09/25 05/09/25 05/09/25 10:38 10:47 11:15 11:40 Temp 98.4 Pulse 95 96 98 Resp 12 14 16 17 B/P (MAP) 104/72 88/52 (64) 94/64 (74) Pulse Ox 98 Laboratory Tests Test 05/09/25 10:58 05/09/25 11:08 Urine Specimen Description [place] cath Urine Color Yellow Urine Clarity Clear Urine pH 5.5 Urine Specific [place] 1.015 Urine Protein 100 H Urine Glucose (UA) 100 H Urine Ketones Negative Urine Occult Blood Large H Urine Nitrite Negative Urine Bilirubin Negative Urine Urobilinogen 4.0 H Urine Leukocyte Esterase Small H Urine RBC 50-100 Urine WBC Tntc H Urine WBC Clumps Few Urine Squamous Epithelial Cells Moderate Urine Transitional Epithelial Cells Few Urine Amorphous Urates 1+ Urine Bacteria 2+ Urine Mucus Few Urine Culture Indicated Indicated Volume Urine Centrifuged 7 ml Urine Comment Low volume White Blood Count 26.4 *H Red Blood Count 3.57 L Hemoglobin 9.6 L Hematocrit 30.0 L Mean Corpuscular Volume 84.2 Mean Corpuscular Hemoglobin 27.0 Mean Corpuscular Hemoglobin Concent 32.1 L Red Cell Distribution Width 15.9 H Platelet Count 484 H Mean Platelet Volume 7.4 Neutrophils (%) (Auto) 89.7 H Lymphocytes (%) (Auto) 3.6 L Monocytes (%) (Auto) 6.0 Eosinophils (%) (Auto) 0.1 Basophils (%) (Auto) 0.6 Neutrophils # (Auto) 23.7 H Lymphocytes # (Auto) 0.9 L Monocytes # (Auto) 1.6 H Eosinophils # (Auto) 0.0 Basophils # (Auto) 0.1 CBC Comment Differential Total Cells Counted 100 Neutrophils % (Manual) 90.0 H Band Neutrophils % 2.0 Lymphocytes % (Manual) 3.0 L Monocytes % (Manual) 5.0 Platelet Estimate Increased Red Blood Cell Morphology Normal Basophilic Stippling Sodium Level 132 L Potassium Level 4.2 Chloride Level 105 Carbon Dioxide Level 20.7 L Anion Gap 6 L Blood Urea Nitrogen 36 H Creatinine 1.45 H Estimated GFR/1.73 m2 38 BUN/Creatinine Ratio 24.8 H Glucose Level 188 H Lactic Acid Level 1.0 Calcium Level 7.5 L Magnesium Level 1.5 Albumin 1.6 L Procalcitonin 2.78 H Chemistry Comments Microbiology Date/Time Source Procedure Growth Status 05/09/25 11:27 Urine Urinal (Er Only) Urine Culture - Preliminary Culture received. Resulted Medical Decision Making Additional information obtaine: old records Findings At this facility [place] [address] [place] [address] from less than 12 hours ago. The patient is vital signs has been holding steady. She already received 2 g of vancomycin less than 12 hours ago that has persisted of IV fluids. I put her on maintenance fluids and started her on vancomycin. She is not tachycardic here however she is slightly hypotensive. That has point and plan to admit the patient to the hospitalist Urinary Diff Dx:Considerations: Include: AAA, , Aortic dissection, Appendicitis, Bowel obstruction, Cholelithiasis, Choleangitis, DJD, Ectopic , Hepatitis, HNP, Impaction, Intrauterine , Musculoskeletal pain, Ovarian torsion, Pancreatitis, PID, Post-Op complication, Pyelonephritis, Renal failure, Strain, Urinary Obstruction, Urolithiasis, Urinary retention, UTI, Vaginitis, Other Genital Diff Dx:Considerations: Include: -Complete, - Incomplete, -Inevitable, Ablortion-Missed, -Threatened, Abruptio placentae, Bartholin abscess, Bartholin cyst, Blood loss anemia, Constipation, Cervicitis, Dsymenorrhea, Ectopic , Foreign body, Hormonal, Hidradenitis suppurativa, Intrauterine , Menorrhagia, Menometrorrhagia, Menstrual bleeding, Myomatous uterus, Perianal abscess, Physiologic discharge, Pinworms, PID, Placenta previa, , Precipitous Hct, Trauma, UTI, Vaginitis(osis)-Atrophic, Vaginitis, Vaginitis(osis)-Bacterial, Vaginitis(osis)- Candidal, Vaginitis(osis)-Contact, Vaginitis(osis)-Herpes, Vaginitis(osis)- Trich., Other Additional Comment Urinary retention. Urosepsis. Pyelonephritis. UTI. Methamphetamine abuse. Acute kidney injury. Hyperglycemia Departure Disposition: ADMITTED INPATIENT Admitted to Inpatient Unit: yes, to hospitalist ([place]) Admission Level of Care: PCU Impression: Primary Impression: Pyelonephritis Additional Impressions: Sepsis Urinary retention Hyperglycemia Methamphetamine abuse Condition: Guarded Referrals: NO PRIMARY CARE PROVIDER (PCP) Critical Care Note Total Time (mins): 35 Critical Care Note The patient is found to be uroseptic acutely that required assistance with IV fluids and antibiotics. Given the possibility of rapid with a MIs am starting 35 minutes of critical care time. Signature Scribe Signature: No scribe Attestation: The note accurately reflects work and decisions made by me.Dot SUH 05/09/25 13:00 DOT ROSALES May 09, 2025 11:12
[2025-05-09] MEDS: normal saline 1000ml 1,000 ML IV ONE (11:14)
[2025-05-09 11:17] LABS: LEUKOCYTE ESTERASE ,URINE SMALL (Neg); NITRITES, URINE NEGATIVE (Neg); OCCULT BLOOD,URINE LARGE (Neg)
[2025-05-09 11:19] LABS: MEAN PLATELET VOLUME 7.4 FL (7.4-10.4); RED CELL DISTRIBUTION WIDTH 15.9 % (11.5-14.5)
[2025-05-09 11:23] LABS: UA COLLECTION TYPE FOLEY CATH
[2025-05-09 11:26] LABS: AMORPHOUS URATES 1+; MUCUS STRANDS FEW /LPF (Neg); SQUAMOUS EPITHELIAL CELL,UR MODERATE /LPF (FEW); WBC CLUMPS,URINE FEW /HPF (NEGATIVE)
--- NOTE | 2025-05-09 11:28 | RADIOLOGY REPORT ---
EXAM: DI CHEST,SINGLE VIEW Indication: SEPSIS Technique: Single frontal view of the chest was obtained Comparison: DI CHEST,SINGLE VIEW on DOS: 03/22/25 FINDINGS: Lines and Tubes: None Lungs: No focal consolidation. Pleura: No effusion. No pneumothorax. Cardiomediastinal contours: Unremarkable Bones: No acute osseous abnormality. IMPRESSION: No acute cardiopulmonary disease.
[2025-05-09 11:33] LABS: CREATININE 1.45 MG/DL (0.40-0.90); TOTAL CARBON DIOXIDE 20.7 MMOL/L (24-32); eCRCL 32 ML/MIN; eGFR 38 ML/MIN
[2025-05-09 11:50] LABS: BANDS% (MANUAL) 2.0 % (0-10); LYMPHOCYTES % (MANUAL) 3.0 % (21-51); MONOCYTES % (MANUAL) 5.0 % (2-12); NEUTROPHILS % (MANUAL) 90.0 % (42-75); PLATELET ESTIMATE INCREASED
[2025-05-09] MEDS: vancomycin inj. 750 MG in normal saline 250ml IV soln 250 ML IV SCH (13:07)
[2025-05-09] MEDS ORDERED: HYDROcodone/acetaminophen 5mg/325mg tablet PO PRN (15:00)
[2025-05-09] MEDS ORDERED: magnesium Cl slow-release 64mg tablet PO PRN (15:00)
[2025-05-09] MEDS ORDERED: HYDROmorphone/PF 0.2 MG/ML SYRINGE IV PRN (15:00)
[2025-05-09] MEDS ORDERED: potassium Cl 40MEQ/1/2NS 520ml 520 ML IV PRN (15:00)
[2025-05-09] MEDS ORDERED: magnesium sulf-water 4G/100mL 100 ML IV PRN (15:00)
[2025-05-09] MEDS ORDERED: potassium Cl 20 mEq SR tablet PO PRN ×2 (15:00)
[2025-05-09] MEDS: PERFLUTREN PROTEIN-A MICROSPHR (Optison) 0.22 MG/ML 3ML VIAL IV ONE (15:00)
[2025-05-09] MEDS ORDERED: magnesium hydroxide 30ml (MOM) UD suspension PO PRN (15:00)
[2025-05-09] MEDS ORDERED: mag hydrox/Alum hydrox/simeth 30ml oral suspension PO PRN (15:00)
[2025-05-09] MEDS ORDERED: piperacillin/tazo 4.5gm/100ml 100 ML IV SCH (16:00)
[2025-05-09 16:10] LABS: INR 1.1 INR
[2025-05-09 16:25] LABS: CREATININE 1.40 MG/DL (0.40-0.90); PRO BRAIN NATRIURETIC PEPTIDE 1959 PG/ML (0-125); TOTAL CARBON DIOXIDE 18.2 MMOL/L (24-32); eCRCL 33 ML/MIN; eGFR 39 ML/MIN
[2025-05-09] MEDS: HYDROcodone/acetaminophen 10/325mg tab PO PRN (16:43)
--- NOTE | 2025-05-09 17:24 | HISTORY AND PHYSICAL-Residence ---
History & Physical Providers to CC Resident Creating Document: KADIE FITCH, RES ~ History of Present Illness Primary Medical Doctor: [facility] Reason for Admit\Complaint: Pyelonephritis History of Present Illness The patient is a 54 medical history of diabetes mellitus, CAD, COPD, urinary incontinence, substance use disorder, was transferred from [facility] for the management of pyelonephritis and sepsis. The patient was recently admitted in [facility] in March, for the management of UTI sepsis. She left AMA. The patient reported having back pain since one week and fever since 3-4 days. Also associated with nausea, vomiting and dry heaving. Loss of appetite present. Reports abdominal pain secondary to recurrent vomiting. The patient also had watery diarrhea since the last few days. She lives in [facility] with her and actively smokes and does methamphetamines. Course at [facility]: The patient was found to have profound leukocytosis and clinical changes suggesting urinary origin. She underwent CT imaging which showed mild left hydroureteronephrosis with perinephric fat stranding. Patient was hypotensive but she was responsive to fluids. She was initially tachycardic but improved with fluid resuscitation. She was started on Rocephin. Received pain medication for back pain. The patient also had drop in her saturations to mid 80s. She was also noted to have some persistent urinary retention which is likely due to the infectious concerns. She has been transferred to [facility] for the requirement of higher level of care. Allergies: Coded Allergies: Penicillins (Unverified Allergy, Severe, ANAPHYLAXIS, 05/09/25) aspirin (Unverified Allergy, Unknown, 03/20/25) abreu pepper (Unverified Allergy, Unknown, Rash, 03/22/25) Home Medications Home Medications Active Reported Lantus* (Insulin Glargine) 100 Unit/1 Ml Vial 20 Units SQ HS pt ran out med and has not using for a while Novolog (Insulin Aspart) 100 Unit/Ml Cartridge 1 Unit SQ TIDWM PRN Symbicort 160-4.5 Mcg Inhaler (Budesonide/Formoterol Fumarate) 160 Mcg-4.5 Mcg/Actuation Hfa.aer.ad 2 Puffs PO BID Neurontin (Gabapentin) 100 Mg Capsule 1 Cap PO DAILY Mounjaro (Tirzepatide) 2.5 Mg/0.5 Ml Pen.injctr 2.5 Mg SQ MONDAY Farxiga (Dapagliflozin Propanediol) 5 Mg Tablet 1 Tab PO DAILY new med, pt states she has not started yet Past Medical History Past Medical History Diabetes mellitus Substance use disorder CAD COPD Urinary retention Chronic anemia Recent history of UTI Past Surgical History Surgical History Comment Ankle repair surgery Hip surgery Family history: Mother-cervical cancer Father-AK in his 40s Past Social History Social History Comment The patient lives in [facility] with her . Ambulates independently without assistance. PCP- [facility], does not follow up with other specialists Substance use history: Smokes half pack of cigarettes per day, has been smoking since she was 21. Quit two days ago. Denies alcohol consumption. Does meth. Quit two days ago. ROS ROS Constitutional: Reports fever, dizziness, weakness. Loss of appetite HEENT: No blurring of the vision, No sore throat, epistaxis, tinnitus Cardiovascular: No chest pain/discomfort, palpitations, syncope. No pedal edema Respiratory: No sob, cough, hemoptysis Gastrointestinal: Reports abdominal pain, nausea, vomiting, diarrhea, no constipation, melena. Genitourinary: Reports frquency, urgency, incontinence, no nocturia. No dysuria, hematuria Musculoskeletal: Reports back pain Endocrine: No fatigue, polydipsia, polyuria. No heat or cold intolerance Neurologic: No headache, vertigo. No weakness, numbness or tingling of extremities Psychiatric: No hallucinations/delusions, no anhedonia, no suicidal ideation Hematologic: No bleeding or bruises Exam Vitals: Vital Signs Date Time Temp Pulse Resp B/P (MAP) Pulse Ox O2 Delivery O2 Flow Rate FiO2 05/09/25 17:08 19 05/09/25 16:46 98.4 112 154/89 (110) 98 0 General: Adult female, pale, appears older than stated age, appears to be in acute distress because of back pain, alert and oriented no Head: Normocephalic with an atraumatic Eyes: Pupils- 3mm, reacting to light, conjunctiva- anicteric, pale conjunctiva Nose and throat: No polyps, septum- normal, no mucosal ulcers, dry mucous membranes Neck: Supple, no lymphadenopathy, no carotid bruit Respiratory: Diminished breath sounds bilaterally Cardiac: S1-S2 heard, rhythm regular, no gallop/murmur Abdomen: non distended, mild epigastric and left upper quadrant tenderness, no organomegaly, bowel sounds - heard, bilateral flank tenderness present Extremities: no clubbing, no pedal edema, no deformities, peripheral pulses - 2+ Skin: warm and dry, no rash, no purpura Neuro: No focal deficit, gross cranial nerve exam - normal Diagnostic Data Last Recorded Lab Results: 05/09/25 1108 05/09/25 1550 Diagnostic Data: Laboratory Tests Test 05/09/25 15:50 Prothrombin Time 11.6 SECONDS (9.0-12.0) INR International Normalized Ratio 1.1 INR Coagulation Comments Counseling Services Smoking & Tobacco Cessation: > 10 Minutes Advance Care Planning Advanced Care plannin - 30 Minutes (Advanced care planning discussed with the patient and she wanted full code) Additional Plan The patient is a 54-year-old female with past medical history diabetes, CAD, COPD, urinary incontinence, recent UTI, substance use disorder, was transferred from another hospital for the management of pyelonephritis. She is being admitted into the hospital for further evaluation and management. Plan: Sepsis Pyelonephritis Subjective fevers present. Leukocytosis 26.4 with neutrophilia, elevated procalcitonin 2.78, normal lactic acid. Bicarb 18.2. Lipase within normal, troponins within normal limits. CT abdomen showed The patient ceftriaxone in the morning the hospital. She received vancomycin here. Started her on IV ceftriaxone and vancomycin as per Dr. Bates' recommendations. She is allergic to penicillins, therefore could not initiate zosyn. Her previous blood cultures grew enterococcus but urine was sterile. Continue IV NS at 150 ml/hr. Continue omer's catheter. MYLA likely secondary to sepsis Creatinine 1.40. Continue IV fluids currently running at 150 ml/hr. Watery diarrhea Follow up with C diff. Acute hypoxemic respiratory failure Possible COPD exacerbation Currently on 2 L of oxygen through nasal cannula. COVID, influenza A and B negative. Continue IV antibiotics. Uncontrolled diabetes mellitus HbA1c 11.6. Started her on hyperglycemia/hypoglycemia protocol with 20 units lantus, 7 units humalog with meals, and high dose supplemental insulin protocol. Coronary artery disease History of MIx2 30 years back after cocaine consumption. Continue outpatient follow up. Substance use disorder Nicotine use disorder Toxicology screen at the other hospital positive for amphetamines. director client services and substance use navigator consulted. Chronic anemia Hb 9.6, similar to what it was in march. Continue monitoring H and H. Code Status: Full code DVT Prophylaxis: Heparin Analgesia/Sedation: Dilaudid Lines/Tubes: PIV GI Prophylaxis: Protonix Nutrition: Carb controlled diet PT: Ordered Prognosis: Guarded Disposition: We will admit the patient into [facility]. Continue IV antibiotics and IV fluids. Follow up with blood and urine cultures. Kadie Fitch MD Internal Medicine Resident PGY-2 The patient was seen, examined and discussed with the attending physician, Dr. Wan. Date of Service: May 09, 2025 Billing Provider: BENEDICT WAN MD,KADIE SUH, RES May 09, 2025 17:24
[2025-05-09] MEDS ORDERED: dextrose 50%-water 50ml dispensing syringe IV PRN ×2 (18:25)
[2025-05-09] MEDS ORDERED: DEXTROSE 15 GM of carb/4 tabs (each vial/BOTTLE has 4 tablets) PO PRN ×2 (18:25)
[2025-05-09] MEDS ORDERED: glucagon, human recombinant 1mg kit SUBCUT PRN (18:25)
[2025-05-09] MEDS ORDERED: ipratropium/albuterol 3ml nebule NEB PRN (18:30)
[2025-05-09] MEDS: K and/or MAG REPLACEMENT MC SCH (20:00)
[2025-05-09] MEDS ORDERED: MEROPENEM 1GM/NACL 50ML IVPB 50 ML IV SCH (20:00)
[2025-05-09] MEDS: docusate sod 100mg capsule PO SCH (20:00)
[2025-05-09] MEDS: lactobacillus rhamnosus 10,000 MMU CELLS/CAPSULE PO SCH (20:18)
[2025-05-09] MEDS: heparin, porcine 5000 units/ml vial SQ SCH (20:18)
[2025-05-09] MEDS: INSULIN LISPRO 100 UNIT/ML INSULN.PEN MULTI-DOSE SQ SCH (20:24)
[2025-05-09] MEDS ORDERED: INSU100V9 SQ (20:38)
[2025-05-09] MEDS ORDERED: BUDE10.2 INH (20:38)
[2025-05-09] MEDS ORDERED: GABA-530 PO (20:38)
[2025-05-09] MEDS ORDERED: insulin glargine (Lantus) pen - multi-dose SQ SCH (21:00)
[2025-05-09 22:00] VITALS: BP 107/7; PULSE 99; RESP 19; TEMP 98.6; O2SAT 94
[2025-05-09 23:31] VITALS: PULSE 98; RESP 18; O2SAT 94
[2025-05-10] VITALS (8 sets, daily range): BP systolic 99–139; BP diastolic 64–89; PULSE 90–113; RESP 15–21; TEMP 96.9–97.8; O2SAT 91–100
[2025-05-10] MEDS: ondansetron/PF 4mg/2ml inj IV PRN (01:14)
[2025-05-10] MEDS: insulin glargine (Lantus) pen - multi-dose SQ SCH (01:16)
[2025-05-10] MEDS: metoclopramide 5 mg/ml inj IV PRN (06:08)
[2025-05-10 06:51] LABS: MEAN PLATELET VOLUME 7.6 FL (7.4-10.4); RED CELL DISTRIBUTION WIDTH 15.4 % (11.5-14.5)
[2025-05-10] MEDS: CefTRIAXone/D5W-Rocephin 1gm 50 ML IV SCH (07:32)
[2025-05-10] MEDS: pantoprazole 40mg Tablet.DR PO SCH (07:33)
[2025-05-10 07:37] LABS: CHOL/HDL RATIO 4.6 (0.00-4.99); CREATININE 1.50 MG/DL (0.40-0.90); LDL CHOLESTEROL 26 MG/DL (50-100); PHOSPHORUS 2.7 MG/DL (2.3-4.5); TOTAL CARBON DIOXIDE 19.2 MMOL/L (24-32); eCRCL 31 ML/MIN; eGFR 36 ML/MIN
[2025-05-10] MEDS ORDERED: CefTRIAXone 2gm/D5W 50ml BAG 50 ML IV SCH (08:00)
[2025-05-10] MEDS: INSULIN LISPRO 100 UNIT/ML INSULN.PEN MULTI-DOSE SQ SCH (09:00)
[2025-05-10] MEDS ORDERED: INSULIN LISPRO 100 UNIT/ML INSULN.PEN MULTI-DOSE SQ SCH (09:00)
[2025-05-10] MEDS ORDERED: vancomycin inj. 750 MG in normal saline 250ml IV soln 250 ML IV SCH (12:02)
[2025-05-10] MEDS: magnesium sulf-water 2g/50mL 50 ML IV PRN (12:37)
--- NOTE | 2025-05-10 16:54 | PROGRESS NOTE- Residence ---
Progress Note - Resident Providers to CC Resident Creating Document: KADIE FITCH ANGELI, RES ~ Antibiotic Timeout Antibiotic Ordered?: Yes Subjective Patient was seen and examined at bedside today. Her flank pain has almost resolved. She does not have any complaints. Objective Vital Signs Date Time Temp Pulse Resp B/P (MAP) Pulse Ox O2 Delivery O2 Flow Rate FiO2 05/10/25 14:06 15 05/10/25 11:42 103 94 Room Air* 0 21 05/10/25 02:00 97.6 136/87 (103) Result Diagram: 05/10/25 0558 05/10/25 0558 Adult female, pale, appears older than stated age, appears to be in no acute distress Head: Normocephalic with an atraumatic Eyes: Pupils- 3mm, reacting to light, conjunctiva- anicteric, pale conjunctiva Nose and throat: No polyps, septum- normal, no mucosal ulcers, moist mucous membranes Neck: Supple, no lymphadenopathy, no carotid bruit Respiratory: Diminished breath sounds bilaterally Cardiac: S1-S2 heard, rhythm regular, no gallop/murmur Abdomen: non distended, no tenderness, no organomegaly, bowel sounds - heard, bilateral flank tenderness present Extremities: no clubbing, no pedal edema, no deformities, peripheral pulses - 2+ Skin: warm and dry, no rash, no purpura Neuro: No focal deficit, gross cranial nerve exam - normal Coagulation Studies Laboratory Tests Test 05/09/25 15:50 Prothrombin Time 11.6 SECONDS (9.0-12.0) INR International Normalized Ratio 1.1 INR Coagulation Comments Assessment Assessment The patient is a 54-year-old female with past medical history diabetes, CAD, COPD, urinary incontinence, recent UTI, substance use disorder, was transferred from another hospital for the management of pyelonephritis. She is being admitted into the hospital for further evaluation and management. Plan Plan Sepsis Pyelonephritis Leukocytosis trending down 20.9 from 26.4 yesterday. Bicarb 19.[address] abdomen showed mild left hydroureteronephrosis with perinephric fat stranding. Continue IV ceftriaxone and vancomycin as per Dr. Bates' recommendations. Continue bicarb drip at 100 ml/hr. Continue omer's catheter. MYLA likely secondary to sepsis Creatinine 1.50. Continue IV fluids - bicarb drip currently running at 100 ml/hr. Watery diarrhea Follow up with C diff. Acute hypoxemic respiratory failure, resolved Possible COPD exacerbation Currently on room air. COVID, influenza A and B negative. Continue IV antibiotics and duonebs PRN. Uncontrolled diabetes mellitus HbA1c 11.6. Started her on hyperglycemia/hypoglycemia protocol with 10 units lantus, 5 units humalog with meals, and high dose supplemental insulin protocol. Coronary artery disease History of MIx2 30 years back after cocaine consumption. Continue outpatient follow up. Substance use disorder Nicotine use disorder Toxicology screen at the other hospital positive for amphetamines. media services director and substance use navigator consulted. Chronic anemia Hb 9.2, similar to what it was in march. Continue monitoring H and H. Code Status: Full code DVT Prophylaxis: Heparin Analgesia/Sedation: Dilaudid Lines/Tubes: PIV GI Prophylaxis: Protonix Nutrition: Carb controlled diet PT: Ordered Prognosis: Guarded Disposition: Continue care in [facility]. Continue IV antibiotics and IV fluids. Follow up with blood and urine cultures. Kadie Fitch MD Internal Medicine Resident PGY-2 The patient was seen, examined and discussed with the attending physician, Dr. Wan. Date of Service: May 10, 2025 Billing Provider: BENEDICT WAN MD,KADIE SUH, RES May 10, 2025 16:54
[2025-05-10] MEDS: sodium bicarbonate 1meq/ml inj 150 ML in sodium chloride 0.45% 1,000 ML IV SCH (16:55)
[2025-05-11 06:00] VITALS: BP 122/79; PULSE 92; RESP 16; TEMP 97.7; O2SAT 96
[2025-05-11 06:20] LABS: MEAN PLATELET VOLUME 7.5 FL (7.4-10.4); RED CELL DISTRIBUTION WIDTH 16.2 % (11.5-14.5)
--- NOTE | 2025-05-11 06:21 | CARDIOLOGY REPORT ---
APPROVED REPORT EXAM: Comprehensive 2D, Doppler, and color-flow Echocardiogram. Patient Location: 30[address] Blood Pressure: 136/87 mmHg Heart Rate: 93 bpm Rhythm: Sinus Rhythm Indications Arrhythmia Sepsis Substance Use Disorder Diabetes Mellitus II CAD COPD Kettle Cleaner: None Previous echo: None 2D Dimensions RVDd 3.4 cm LA Diam 3.9 cm RA Minor 3.0 cm Aortic Root(2D) 3.0 cm LVOT Diameter 1.81 (1.8-2.4cm) IVC 20.83 mm CO 3.3 L/min M-Mode Dimensions RVDd 3.65 (2.1-3.2cm) Left Atrium(MM) 3.24 (2.5-4.0cm) IVSd 0.82 (0.7-1.1cm) LVDd 3.79 (4.0-5.6cm) Aortic Root 2.82 (2.2-3.7cm) PWd 0.85 (0.7-1.1cm) Aortic Cusp Exc 1.73 (1.5-2.0cm) IVSs 1.09 cm MV EPSS 0.6 (<0.5cm) LVDs 2.62 (2.0-3.8cm) FS (%) 31 % PWs 1.14 cm ESV(Teich) 25.2 ml LVEF(%) 59 (>50%) Aortic Valve AoV Peak Myles. 118.4 cm/s AoV VTI 20.8 cm AO Peak GR. 5.6 mmHg AO Mean GR. 3 mmHg LVOT VTI 16.88 cm LVOT Peak Myles. 96.1 cm/s JS(VTI)/BSA 2.09 cm2/m2 JS (VTI) 2.09 cm2 AV DI 0.81 % Mitral Valve MV E Velocity 78.3 cm/s MV Peak Gr. 5 mmHg MV DECEL TIME 116 ms MV A Velocity 98.9 cm/s MV Mean Gr. 2 mmHg MV PHT 56 ms E/A Ratio 0.8 MVA (PHT) 3.93 cm2 MV VMax 111.4 cm/s MV VMean 66.1 cm/s MV VTI 18.0 cm TDI Medial E' P. V 7.78 cm/s E/Medial E' 10.1 Tricuspid Valve TR P. Velocity 331 cm/s RAP ESTIMATE 10 mmHg TR Peak Gr. 44 mmHg RVSP 54 mmHg LEFT VENTRICLE Normal LV size and wall thickness. Overall systolic function is normal. Overall LVEF is 55-60%. RIGHT VENTRICLE Right ventricle is mildly dilated with normal function. Estimated PA systolic pressure is 54 mmHg. ATRIA The left atrium size is normal. The right atrium size is normal. AORTIC VALVE Trileaflet AV appears sclerotic without stenosis or insufficiency. MITRAL VALVE Mild MV annular thickening without stenosis. Mild regurgitation. TRICUSPID VALVE TV appears structurally normal with mild to moderate regurgitation. PULMONIC VALVE Normal PV without stenosis, physiologic insufficiency. GREAT VESSELS The aortic root is normal in size. IVC is dilated and collapses less than 50% with inspiration. PERICARDIUM Normal pericardium. No pericardial effusion seen. Other Information Study Quality: Adequate Conclusion Normal LV size and wall thickness. Overall systolic function is normal. Overall LVEF is 55-60%. Right ventricle is mildly dilated with normal function. Estimated PA systolic pressure is 54 mmHg. The left atrium size is normal. The right atrium size is normal. Trileaflet AV appears sclerotic without stenosis or insufficiency. Mild MV annular thickening without stenosis. Mild regurgitation. TV appears structurally normal with mild to moderate regurgitation. Normal pericardium. No pericardial effusion seen.
[2025-05-11 06:42] LABS: CREATININE 1.41 MG/DL (0.40-0.90); PHOSPHORUS 2.1 MG/DL (2.3-4.5); TOTAL CARBON DIOXIDE 24.6 MMOL/L (24-32); eCRCL 33 ML/MIN; eGFR 39 ML/MIN
[2025-05-11 08:53] VITALS: PULSE 92; RESP 18; O2SAT 97
[2025-05-11 11:00] VITALS: BP 139/92; PULSE 60; RESP 18; TEMP 98.3; O2SAT 93
[2025-05-11] MEDS: normal saline 1000ml 1,000 ML IV SCH (11:02)
--- NOTE | 2025-05-11 13:29 | PROGRESS NOTE- Residence ---
Progress Note - Resident Providers to CC Resident Creating Document: NEREIDA MCLAUGHLIN RES ~ Antibiotic Timeout Antibiotic Ordered?: Yes Subjective Patient was seen and examined at bedside today. She has no flank pain or costovertebral tenderness. She denies fever, chills, nausea, vomiting, diarrhea, abdominal pain. She has a omer's in place. Objective Vital Signs Date Time Temp Pulse Resp B/P (MAP) Pulse Ox O2 Delivery O2 Flow Rate FiO2 05/11/25 11:24 Room Air 05/11/25 11:00 98.3 60 18 139/92 (108) 93 05/11/25 08:53 0 21 Result Diagram: 05/11/25 0552 05/11/25 0552 Awake , alert, and oriented x4, resting comfortably in the bed, in no acute distress HEENT: Atraumatic, normocephalic, EOMI, anicteric sclera ; pink conjunctiva Neck: Trachea midline. Supple, full range of motion, no JVD Cardiac: Regular rhythm, regular rate with no murmurs all over the precordium. Respiratory: Equal breath sounds bilaterally, no tachypnea, no wheezing ,rub or rales, Chest wall is symmetric and without deformity. Gastrointestinal: Abdomen symmetric, non-distended, soft, non-tender, normal bowel sounds, no hepatosplenomegaly Musculoskeletal: No pedal edema, no cyanosis Neurological: Speech is clear, alert, and oriented x 4. No motor or sensory deficit, deep tendon reflexes normal, cerebellar intact. Cranial nerves II-XII intact. Skin: Warm and dry Coagulation Studies Laboratory Tests Test 05/09/25 15:50 Prothrombin Time 11.6 SECONDS (9.0-12.0) INR International Normalized Ratio 1.1 INR Coagulation Comments Assessment Assessment The patient is a 54-year-old female with past medical history diabetes, CAD, COPD, urinary incontinence, recent UTI, substance use disorder, was transferred from [place] for the management of pyelonephritis and sepsis. Plan Plan Pyelonephritis Sepsis- Resolved Leukocytosis trending down from 20.9 to 16.1 Bicarb uptrended to 24.6, discontinued bicarb drip and started NS at 100 ml/hr CT abdomen showed mild left hydroureteronephrosis with perinephric fat stranding. Continue IV ceftriaxone and vancomycin-day [address] Bates' recommendations. Continue omer's catheter Plan to discharge patient tomorrow on p.o antibiotics Follow up outpatient for evaluation of recurrent UTI MYLA, mostly prerenal due to systemic vasodilation due to sepsis Creatinine downtrended from 1.5 to 1.41 Continue NS at 100 ml/hr Follow up urine lytes Monitor BMP Watery diarrhea on admission Stool for C.diff testing sent Patient has formed stool now, C.diff unlikely Acute hypoxemic respiratory failure, resolved Possible COPD exacerbation Patient is saturating well on room air COVID, influenza A and B negative. Continue IV antibiotics and duonebs PRN. Patient uses inhalers at home Uncontrolled diabetes mellitus HbA1c 11.6. Glucose is 101 Continue on hyperglycemia/hypoglycemia protocol with 10 units lantus, 5 units humalog with meals, and high dose supplemental insulin protocol. Monitor glucose and adjust dosage Coronary artery disease History of MIx2 30 years back after cocaine consumption. Continue outpatient follow up. Substance use disorder Nicotine use disorder Toxicology screen at the other hospital positive for amphetamines. technical services rep and substance use navigator consulted. Chronic anemia Hb 9.6, similar to what it was in march. H/H today- 8.9/27.1 Code Status: Full code DVT Prophylaxis: Heparin Analgesia/Sedation: Dilaudid GI Prophylaxis: Protonix Nutrition: Carb controlled diet PT: Ordered Prognosis: Guarded Disposition: Continue IV antibiotics and IV fluids. Follow up with blood and urine cultures, PT eval and DC plan Resident MD attestation: The patient note has been reviewed and supervised by senior residents PGY-2/ PGY-3. Patient was seen, examined and discussed with attending physician, Dr. Soco Mclaughlin MD Internal Medicine resident, PGY-1 Date of Service: May 11, 2025 Billing Provider: BENEDICT TREJO MD,NEREIDA, RES May 11, 2025 13:29
[2025-05-11 16:02] LABS: OSMOLALITY UA 282.0 MOSM/K (50-1400)
[2025-05-11 16:09] LABS: CREATININE,URINE RANDOM 9.0 MG/DL
--- NOTE | 2025-05-11 21:09 | DISCHARGE SUMMARY-Residence ---
Discharge Summary Providers to CC Resident Creating Document: ARNOLDONEREIDASTELLA ~ Discharge Summary Admission Diagnosis: Pyelonephritis Hospital Course DATE OF ADMISSION: 05/09/25 DATE OF DISCHARGE: 05/11/25, Patient left AMA Discharge Diagnosis\Comment: Pyelonephritis Sepsis- Resolved MYLA, mostly prerenal due to systemic vasodilation due to sepsis Acute hypoxemic respiratory failure, resolved Possible COPD exacerbation Uncontrolled diabetes mellitus Coronary artery disease Substance use disorder Nicotine use disorder Chronic anemia Operations\Procedures: None Consultants: Dr. Paulo SILVER Complications: None Condition on DC: Stable Discharge Summary: Patient has left AMA. 54 year old female with medical history of diabetes mellitus, CAD, COPD, urinary incontinence, substance use disorder, was transferred from [facility] for the management of pyelonephritis and sepsis. The patient reported back pain, nausea, vomiting since 3-4 days prior to admission. Her UA was positive for UTI and SIRS criteria was present. She was started on IV ceftriaxone and vancomycin as per Dr.Miles ADRIANNE recommendations and started on NS at 150 ml/hr. CT abdomen showed mild left hydroureteronephrosis with perinephric fat stranding. MYLA, which was most likely prerenal was managed with fluids. She required 2 L O2 NC on the 1st day but was saturating well on room air the following days. Her Glucose levels were maintained with hyperglycemia/hypoglycemia protocol with 20 units lantus, 7 units humalog with meals, and high dose supplemental insulin protocol. supervisor special services and substance use navigator consulted for substance use disorder. She was given 3 days of IV antibiotics. WBC downtrended and plan was discharge her on p.o antibiotics after urine culture report but patient left AMA despite being explained and understanding the risks of untreated pyelonephritis like recurrent UTI and sepsis. She was explained that she can come to the ED for any further emergencies. Imaging: CXR-05/09/25 No acute cardiopulmonary disease. Echocardiogram-05/10/25 Normal LV size and wall thickness. Overall systolic function is normal. Overall LVEF is 55-60%. Right ventricle is mildly dilated with normal function. Estimated PA systolic pressure is 54 mmHg. The left atrium size is normal. The right atrium size is normal. Trileaflet AV appears sclerotic without stenosis or insufficiency. Mild MV annular thickening without stenosis. Mild regurgitation. TV appears structurally normal with mild to moderate regurgitation. Normal pericardium. No pericardial effusion seen. Vital Signs Date Time Temp Pulse Resp B/P (MAP) Pulse Ox O2 Delivery O2 Flow Rate FiO2 05/11/25 11:24 Room Air 05/11/25 11:00 98.3 60 18 139/92 (108) 93 05/11/25 08:53 0 21 Laboratory Tests Test 05/10/25 00:58 05/10/25 05:58 05/10/25 07:31 05/10/25 12:35 Glucometer 97 mg/dl 83 mg/dl 88 mg/dl White Blood Count 20.9 X10'3 Red Blood Count 3.47 X10'6 Hemoglobin 9.2 g/dl Hematocrit 28.6 % Mean Corpuscular Volume 82.4 FL Mean Corpuscular Hemoglobin 26.6 PG Mean Corpuscular Hemoglobin Concent 32.3 g/dL Red Cell Distribution Width 15.4 % Platelet Count 474 X10'3 Mean Platelet Volume 7.6 FL Neutrophils (%) (Auto) 85.4 % Lymphocytes (%) (Auto) 7.9 % Monocytes (%) (Auto) 6.0 % Eosinophils (%) (Auto) 0.3 % Basophils (%) (Auto) 0.4 % Neutrophils # (Auto) 17.9 X10'3 Lymphocytes # (Auto) 1.6 X10'3 Monocytes # (Auto) 1.2 X10'3 Eosinophils # (Auto) 0.1 X10'3 Basophils # (Auto) 0.1 X10'3 CBC Comment Sodium Level 134 MMOL/L Potassium Level 4.0 MMOL/L Chloride Level 105 MMOL/L Carbon Dioxide Level 19.2 MMOL/L Anion Gap 10 Blood Urea Nitrogen 28 MG/DL Creatinine 1.50 MG/DL Estimated GFR/1.73 m2 36 ML/MIN BUN/Creatinine Ratio 18.7 Glucose Level 81 MG/DL Calcium Level 7.3 MG/DL Phosphorus Level 2.7 MG/DL Magnesium Level 1.4 MG/DL Total Bilirubin 0.2 MG/DL Aspartate Amino Transf (AST/SGOT) 21 U/L Alanine Aminotransferase (ALT/SGPT) 9 U/L Alkaline Phosphatase 357 IU/L Total Protein 6.6 G/DL Albumin 1.5 G/DL Globulin 5.1 G/DL Albumin/Globulin Ratio 0.3 Triglycerides Level 132 MG/DL Cholesterol Level 88 MG/DL LDL Cholesterol 26 MG/DL HDL Cholesterol 19 MG/DL Cholesterol/HDL Ratio 4.6 Chemistry Comments Test 05/10/25 16:52 05/10/25 21:23 05/11/25 05:52 05/11/25 07:26 Glucometer 150 mg/dl 85 mg/dl 105 mg/dl White Blood Count 16.1 X10'3 Red Blood Count 3.34 X10'6 Hemoglobin 8.9 g/dl Hematocrit 27.1 % Mean Corpuscular Volume 81.0 FL Mean Corpuscular Hemoglobin 26.7 PG Mean Corpuscular Hemoglobin Concent 33.0 g/dL Red Cell Distribution Width 16.2 % Platelet Count 476 X10'3 Mean Platelet Volume 7.5 FL Neutrophils (%) (Auto) 82.5 % Lymphocytes (%) (Auto) 10.5 % Monocytes (%) (Auto) 5.5 % Eosinophils (%) (Auto) 1.2 % Basophils (%) (Auto) 0.3 % Neutrophils # (Auto) 13.3 X10'3 Lymphocytes # (Auto) 1.7 X10'3 Monocytes # (Auto) 0.9 X10'3 Eosinophils # (Auto) 0.2 X10'3 Basophils # (Auto) 0.1 X10'3 CBC Comment Sodium Level 134 MMOL/L Potassium Level 4.1 MMOL/L Chloride Level 103 MMOL/L Carbon Dioxide Level 24.6 MMOL/L Anion Gap 6 Blood Urea Nitrogen 24 MG/DL Creatinine 1.41 MG/DL Estimated GFR/1.73 m2 39 ML/MIN BUN/Creatinine Ratio 17.0 Glucose Level 101 MG/DL Calcium Level 7.5 MG/DL Phosphorus Level 2.1 MG/DL Magnesium Level 1.9 MG/DL Total Bilirubin 0.2 MG/DL Aspartate Amino Transf (AST/SGOT) 11 U/L Alanine Aminotransferase (ALT/SGPT) 10 U/L Alkaline Phosphatase 355 IU/L Total Protein 6.7 G/DL Albumin 1.5 G/DL Globulin 5.2 G/DL Albumin/Globulin Ratio 0.3 Chemistry Comments Test 05/11/25 12:24 05/11/25 15:46 Glucometer 152 mg/dl Urine Eosinophils Few eos /HPF Urine Osmolality 282 MOSM/K Urine Random Creatinine 9.0 MG/DL Urine Random Sodium 93 MEQ/L Examination on the day patient left AMA: Awake , alert, and oriented x4, resting comfortably in the bed, in no acute distress HEENT: Atraumatic, normocephalic, EOMI, anicteric sclera ; pink conjunctiva Neck: Trachea midline. Supple, full range of motion, no JVD Cardiac: Regular rhythm, regular rate with no murmurs all over the precordium. Respiratory: Equal breath sounds bilaterally, no tachypnea, no wheezing ,rub or rales, Chest wall is symmetric and without deformity. Gastrointestinal: Abdomen symmetric, non-distended, soft, non-tender, normal bowel sounds, no hepatosplenomegaly Musculoskeletal: No pedal edema, no cyanosis Neurological: Speech is clear, alert, and oriented x 4. No motor or sensory deficit, deep tendon reflexes normal, cerebellar intact. Cranial nerves II-XII intact. Skin: Warm and dry Dr. Nereida Casanova Internal medicine resident, PGY-1 *Problems/Diagnosis: (1) Pyelonephritis (2) Sepsis (3) Acute respiratory failure (4) COPD exacerbation Total Time Spent on D/C: > 30 Minutes Date of Service: May 11, 2025 Billing Provider: BENEDICT TREJO MD, PREETHI, RES May 11, 2025 21:08
[2025-05-12] MEDS ORDERED: VANCOMYCIN LEVEL IV ONE (12:30)
== END 2025-05-11 17:22 | disposition left against medical advice (07) | DRG 720 ==
LOC: ER 10:32 → ED HOLD 13:04 → PCU 3S 22:00
PROVIDERS: ADMIT Family Medicine; ATTEND Family Medicine
DX: A41.9 Sepsis, unspecified organism (principal); J96.01 Acute respiratory failure with hypoxia; N12 Tubulo-interstitial nephritis, not specified as acute or chronic; N17.9 Acute kidney failure, unspecified; F15.10 Other stimulant abuse, uncomplicated; D64.9 Anemia, unspecified; Z53.21 Procedure and treatment not carried out due to patient leaving prior to being seen by health care provider; R73.9 Hyperglycemia, unspecified; I25.10 Atherosclerotic heart disease of native coronary artery without angina pectoris; Z88.6 Allergy status to analgesic agent; Z79.899 Other long term (current) drug therapy; Z88.0 Allergy status to penicillin; Z91.018 Allergy to other foods; Z79.4 Long term (current) use of insulin
CPT/HCPCS: 36415; 71045; 80048; 80053; 80061; 81001; 82570; 82948; 83036; 83605; 83735; 83880; 83935; 84100; 84145; 84300; 84484; 85007; 85025; 85610; 86885; 86900; 86901; 87040; 87081; 87088; 87207; 93005; 93306; 94760; 96361; 96374; 99291; A4615; A5200; G0378; J0696; J1171; J1644; J1815; J2405; J2765; J3373; J3490; J7030; J7040; J7050